=== PATIENT | female | born 2000 | race Caucasian/White ===

== ENCOUNTER 2022-04-03 14:32 | Observation (INO) | payer OTHER, SELFPAY ==
[2022-04-03] VITALS (15 sets, daily range): BP systolic 108–136; BP diastolic 70–96; PULSE 85–129; RESP 16–17; TEMP 36.9; O2SAT 97–100
--- NOTE | ~2022-04-03 | CT_ITS ---
EXAMINATION: CT abdomen pelvis wo con DATE: 04/03/2022 16:48 INDICATION: RLQ abd pain, nausea, leukocytosis TECHNIQUE: Computed tomography (CT) of the abdomen and pelvis was performed without intravenous contr ast. Automated exposure control and iterative reconstruction technique were employed. The dose-length product was 230.97 mGy-cm. COMPARISON: None FINDINGS: Lower thorax: Unremarkable Liver: Normal. Biliary/Gallbladder: Gallbladder is normal. No bile duct dilation. Pancreas: No mass or duct dilation. Spleen: Normal. Adrenals:No mass. Kidneys: No mass, stone, or hydronephrosis. GI tract: No small or large bowel dilation. Appendix not visualized due to paucity of abdominal fat a nd adjacent bowel Mesentery/Peritoneum: No ascites, mass, or free air. Retroperitoneum: No mass. Pelvis: Pelvic organs are within normal limits. Soft Tissues: Soft tissues and body wall unremarkable. Bones: No acute osseous finding. IMPRESSION: Appendix not visualized. No definite right lower quadrant inflammatory process. No acute abdominopelv ic process detected. Reviewed, dictated and finalized at location K. IMPRESSION: Appendix not visualized. No definite right lower quadrant inflammatory process. No acute abdominopelvic process detected.
[2022-04-03 14:51] LABS: Basophils Percent Auto 0.3 % (0.2-1.2); Eosinophils Percent Auto 0.2 % (0-4.4); Hematocrit 40.9 % (37.0-47.0); Hemoglobin 13.5 g/dL (12.0-15.0); Immature Granulocyte Absolute 0.06 K/mm3 (0.00-0.031); Immature Granulocyte Percent A 0.4 % (0-0.5); Lymphocytes Absolute Auto 1.29 K/mm3 (0.9-3.2); Lymphocytes Percent Auto 8.4 % (18.3-44.2); Mean Corpuscular Hemoglobin 30.3 pg (26-34); Mean Corpuscular Volume 91.7 fl (80-100); Mean Platelet Volume 9.5 fl (7.4-10.4); Monocytes Absolute Auto 2.3 K/mm3 (0.1-0.6); Neutrophils Absolute Auto 11.7 K/mm3 (1.3-6.7); Neutrophils Percent Auto 75.7 % (45.5-73.1); Platelet Count Result 225 k/mm3 (150-375); Red Blood Count 4.46 M/mm3 (4.2-5.4); Red Cell Distribution Width 13.3 % (11.5-14.5); White Blood Count 15.4 K/mm3 (4.5-10.0)
[2022-04-03 15:02] LABS: Alanine Aminotransferase 9 U/L (6-35); Albumin Level 4.4 g/dL (3.5-5.1); Alkaline Phosphatase 76 U/L (38-126); Anion Gap 11 mmol/L (8-16); Aspartate Amino Transferase 18 U/L (14-36); Bilirubin,Total 0.9 mg/dL (0.2-1.3); Blood Urea Nitrogen 10 mg/dL (7-17); Calcium 9.1 mg/dL (8.4-10.2); Carbon Dioxide 21 mmol/L (22-30); Chloride 103 mmol/L (98-107); Estimated CRCL calculation 113 ml/min; Estimated Glomerular Filt Rate > 60; Glucose 94 mg/dL (65-110); Lipase 29 U/L (23-300); Potassium 3.6 mmol/L (3.4-5.0); Sodium 135 mmol/L (137-145)
[2022-04-03 15:08] LABS: Appearance Urine Slightly Cloudy (Clear); Bilirubin Urine 1+ (Negative); Blood Urine 3+ (Negative); Color Urine Yellow (Yellow); Glucose Urine UA Negative (Negative); Ketones Urine 4+ mg/dL (Negative); Leukocyte Esterase Ur 1+ LEU/UL (Negative); Nitrate Urine Negative (Negative); Protein Urine 2+ mg/dL (Negative); Urobilinogen Urine 0.2 mg/dL (<2.0)
[2022-04-03 15:18] LABS: Add Urine Microscopic? YES; Bacteria Urine Trace /hpf; Mucus Urine Few /lpf; Squamous Epithelial Cell Urine Many /hpf (Few); WBC Urine 31-50 /hpf
--- NOTE | 2022-04-03 15:47 | ED.ABDPAIN ---
HPI - Abdominal Pain General Chief Complaint: Abdominal Pain <MARII Au Last Filed: 04/03/22 19:34> Stated Complaint: UPPER ABD PAIN X2D <MARII Au Last Filed: 04/03/22 19:34> Time Seen by Provider: 04/03/22 15:39 <MARII Au Last Filed: 04/03/22 19:34> History of Present Illness HPI narrative: Patient is a 21-year-old female here for evaluation of right-sided abdominal pain for the past 3 days. States the pain is present over right lower quadrant and occasionally right upper quadrant. Patient states the pain initially was intermittent in nature, and since then has become constant over the past 2 days. She has had no appetite today in addition to nausea and subjective chills. Denies relief after Aleve, last taken 2 days ago. Additionally, patient requesting STD treatment as she is experiencing dysuria. Patient is currently sexually active, she does report a known chlamydia exposure about 6 months ago she was never treated for or tested for. She denies any unusual vaginal discharge. LMP was 3 weeks ago and was normal for her; not currently on contraceptives. No vomiting, diarrhea, constipation, fevers. <MARII Au Last Filed: 04/03/22 19:34> Related Data Allergies/Adverse Reactions: Allergies Allergy/AdvReac Type Severity Reaction Status Date / Time No Known Allergies Allergy Unknown Verified 04/03/22 14:43 <MARII Au Last Filed: 04/03/22 19:34> Review of Systems Review of Systems: Gen.: Reports chills Eyes: Denies eye pain or visual change ENT: Denies congestion Respiratory: Denies shortness of breath or cough CV: Denies chest pain or palpitations GI: Reports abdominal pain, nausea, anorexia denies burning, urgency, frequency or hematuria Musculoskeletal: Denies back pain or muscle pain Neuro: Denies numbness, tingling, weakness or focal weakness Skin: Denies rash Except as documented, all other systems reviewed and negative <MARII Au Last Filed: 04/03/22 19:34> PMFSH Family History Family History: Family History (Updated 04/04/22 @ 02:10 by Anna Harrison RN) Other Unknown family medical history <Almaz Castañeda PA-C - Last Filed: 04/03/22 19:34> Social History Social History: Social History Smoking packs per day: 0.8 Smoking cigarettes per day: 16.0 Smoking status: Current every day smoker Tobacco type: cigarettes Alcohol intake: current Drinks per week: 5 Substance use: never Spiritual care concerns: No <Almaz Castañeda PA-C - Last Filed: 04/03/22 19:34> Exam Narrative: APPEARANCE: Well appearing, no pain in distress, well-nourished. Head: normocephalic and atraumatic. EYES: PERRLA/EOMI, conjunctivae clear NOSE: No nasal drainage EARS: External ear normal in appearance THROAT: Oropharynx is clear. Mucous membranes are moist. NECK: Supple. No adenopathy, no masses. RESPIRATORY: Airway patent, respirations nonlabored. Clear to auscultation bilaterally, no rales, rhonchi, wheezing. CARDIOVASCULAR: Regular rate and rhythm without murmurs, rubs, or gallops. ABDOMINAL: Tender to palpation in the right lower quadrant. Normoactive bowel sounds. Soft, nontender, nondistended. No rebound tenderness or guarding. : Exam performed with journeyman operator assistant Rahel. Moderate amount of blood noted in vaginal vault. No cervical lesions. No cervical motion tenderness. MUSCULOSKELETAL: Extremities are warm and well-perfused. Moves all extremities well. No edema. NEURO: Normal speech. No focal neurologic deficits. SKIN: Skin is warm and dry. No rashes. PSYCHIATRIC: Normal affect/mood. <Almaz Castañeda PA-C - Last Filed: 04/03/22 19:34> Course SYSTEM ADMIN/PA Physician Supervision For this patient encounter, I reviewed the SYSTEM ADMIN or PA documentation, treatment plan, and medical decision making; and I had [id number] time with krystian
[2022-04-03] MEDS: SODIUM CHLORIDE 0.9% IV 1,000 ML 999 ML IV CONT ×2 (16:05→18:34)
[2022-04-03] MEDS: FAMOTIDINE 20 MG/2 ML VIAL IV PUSH (16:05)
[2022-04-03] MEDS: KETOROLAC 15 MG/ML VIAL (*BKC) IV PUSH (18:34)
--- NOTE | 2022-04-03 19:57 | PC.NURSE ---
Pt states she does not desire to be admitted and she would like to leave AMA. Almaz DAILEY notified.
--- NOTE | 2022-04-03 20:28 | PC.NURSE ---
SBAR faxed to floor at 2020.
--- NOTE | 2022-04-03 21:42 | ADMGEN ---
This patient, Slade Boudreaux, was admitted to [facility] Surg Room 324-01. Patient/family oriented to hospital policies and general routines including ID bracelet, bed and alarms, visiting hours, pain management, procedures, bathroom and other care routines, personal items, smoking policy, room service/diet, and visiting hours. Information on how to activate the Rapid Response Team has been discussed. Patient/Family are encouraged to report perceived risks to care and to ask questions if they do not understand what they are told or what they should do.
[2022-04-03 21:45] LABS: Lactic Acid Reflex 0.7 mmol/L (0.7-2.0)
[2022-04-03] MEDS: SODIUM CHLORIDE 0.9% IV 1,000 ML 150 ML IV CONT (23:29)
[2022-04-04] VITALS: PULSE 75
[2022-04-04 04:00] VITALS: PULSE 79
[2022-04-04 06:00] VITALS: BP 112/66; PULSE 72; RESP 16; TEMP 37.1; O2SAT 98
[2022-04-04 08:00] VITALS: PULSE 69; O2SAT 99
[2022-04-04 09:47] LABS: Basophils Percent Auto 0.4 % (0.2-1.2); Eosinophils Absolute Auto 0.1 K/mm3 (0-0.3); Eosinophils Percent Auto 1.1 % (0-4.4); Hemoglobin 11.8 g/dL (12.0-15.0); Immature Granulocyte Absolute 0.05 K/mm3 (0.00-0.031); Immature Granulocyte Percent A 0.5 % (0-0.5); Lymphocytes Absolute Auto 1.46 K/mm3 (0.9-3.2); Mean Corpuscular HGB Conc 32.8 g/dl (32-36); Mean Corpuscular Hemoglobin 30.1 pg (26-34); Mean Corpuscular Volume 91.8 fl (80-100); Mean Platelet Volume 9.8 fl (7.4-10.4); Monocytes Absolute Auto 1.3 K/mm3 (0.1-0.6); Monocytes Percent Auto 14.6 % (2.6-8.5); Neutrophils Absolute Auto 6.1 K/mm3 (1.3-6.7); Neutrophils Percent Auto 67.4 % (45.5-73.1); Platelet Count Result 198 k/mm3 (150-375); Red Blood Count 3.92 M/mm3 (4.2-5.4); Red Cell Distribution Width 13.4 % (11.5-14.5); White Blood Count 9.1 K/mm3 (4.5-10.0)
--- NOTE | 2022-04-04 09:50 | PM.CNGS ---
Assessment and Plan Assessment and plan (1) Acute right lower quadrant pain: Code(s): R10.31 - Right lower quadrant pain Status: Acute Assessment and Plan: The patient presented with right-sided abdominal pain. She has been having symptoms for 3 days that actually started with chills and body aches. Since being admitted, her abdominal pain has completely resolved and she only has very mild suprapubic tenderness on exam. Her WBC was elevated on admission, but down to normal this morning. The Radiologist was unable to visualize the appendix on CT, but with 3 days of symptoms you would typically expect to see a dilated appendix or at least some inflammatory changes in the right lower quadrant. There is low suspicion at this time that she has acute appendicitis. It seems more likely that her abdominal pain is caused by a urinary or gynecological source. G/C pending. Trichomonas negative. Urine culture pending, although UA suggests contamination. Will start her on a regular diet today. Will continue to closely monitor at this time. (2) Leukocytosis: Code(s): D72.829 - Elevated white blood cell count, unspecified Status: Acute Assessment and Plan: WBC count 15,400 on admission and this has come down to 9,100 today. She is afebrile and has improved significantly since being admitted. No longer complaining of abdominal pain. Currently on broad-spectrum IV antibiotics while other testing is pending. See plan above. (3) Urinary tract infection: Code(s): N39.0 - Urinary tract infection, site not specified Status: Acute Assessment and Plan: Currently on IV Zosyn. Patient with complaints of dysuria. UA suggests contamination. Management per Hospitalist. Additional Plan I have discussed the patient's case and plan of care with Dr. Melgar. History of Present Illness Consult details Consult date: 04/04/22 Reason for consult: abdominal pain Requesting physician: Almaz Castañeda PA-C Narrative: This is a 21-year-old female who presented to the ER yesterday with right-sided abdominal pain, nausea, and chills. She reports first noticing chills 3 days ago. She continued to have chills for 2 day. She reportedly developed body aches two days ago as well, but no fever. She also reports nausea, but no vomiting or diarrhea. She reports starting her menstrual cycle last Larissa before other symptoms began and had associated lower abdominal cramping that she felt was typically with her menstrual cycle. She also endorses dysuria, but no other urinary complaints or changes in vaginal discharge. Yesterday, she began having right-sided abdominal pain in the RUQ and RLQ that she reports radiated up to her neck and down her right leg. Due to the pain, she presented to the ER for further evaluation. Labs showed a WBC count of 15,400. CT scan of the abdomen/pelvis showed no acute intraabdominal process, but they were unable to visualize the appendix due to paucity of abdominal fat and adjacent bowel. The patient had also reported having known exposure to chlamydia about 6 months ago that was untreated. She has had recent new sexual partners as well. She was tested for trichomonas, which was negative, and chlamydia/gonorrhoeae, which are still pending. Pelvic exam revealed no cervical motion tenderness. Urinalysis in the ER showed many epithelial cells, suggesting contamination. Urine culture pending. Blood cultures pending. The patient has been admitted and started on IV Zosyn. She is currently NPO. Our service was consulted due to RLQ abdominal pain with inability to visualize the appendix on CT. She is now seen on the medical floor. She reports her symptoms have all resolved and she feels completely back to baseline today. Review of Systems Review of Systems: All systems reviewed & are unremarkable except as noted in HPI and below Constitutional: Constitutional: Reports as per HPI, Reports no additional constitutional complain
[2022-04-04 10:00] LABS: Anion Gap 9 mmol/L (8-16); Blood Urea Nitrogen 9 mg/dL (7-17); Calcium 8.6 mg/dL (8.4-10.2); Carbon Dioxide 19 mmol/L (22-30); Chloride 114 mmol/L (98-107); Estimated CRCL calculation 133 ml/min; Estimated Glomerular Filt Rate > 60; Glucose 77 mg/dL (65-110); Potassium 3.6 mmol/L (3.4-5.0); Sodium 142 mmol/L (137-145)
--- NOTE | 2022-04-04 11:25 | PM.SD2 ---
Same Day Admit/Disch: HPI History of Present Illness Chief complaint: R/O Appendicitis Narrative: Slade Boudreaux is a 21 year old female with no past medical history presenting with 2-3 day history of nausea, vomiting, diarrhea, body aches as well as some headache. She had localized the tenderness in the right lower quadrant of her abdomen and so in the ER they ordered a CT scan concerning for appendicitis. CT scan was unable to visualize appendix well. Therefore, the patient was admitted for serial abdominal exams and a surgical consultation. STD testing was also requested and urinalysis was equivocal. [facility] Past Medical History Medical History No significant medical problems Surgical History Surgical History No significant past surgical history Family History Family History Other Unknown family medical history Social History Social History Smoking packs per day: 0.8 Smoking cigarettes per day: 16.0 Smoking status: Current every day smoker Tobacco type: cigarettes Alcohol intake: current Drinks per week: 5 Substance use: never Spiritual care concerns: No Same Day Admit/Disch: Med Pre-admit Medications Home Medications Medication Instructions Recorded Confirmed Type amoxicillin 875 mg-potassium 1 tablet PO Q12H #14 tabs 04/04/22 Rx clavulanate 125 mg tablet Exam Narrative: General: Patient resting comfortably in bed, no acute distress HEENT: Atraumatic, normocephalic, mucous membranes moist CV: Regular rate and rhythm, S1, S2, no murmurs rubs or gallops noted Lungs: Clear to auscultation bilaterally, no rales or crackles noted, no wheezes, good air entry Abdomen: Soft, nontender, nondistended Extremities: Normal to inspection, no edema noted Skin: No rashes noted, no lesions or wounds seen Psych: Euthymic, normal affect Neuro: Cranial nerves 2-12 grossly intact, strength 5/5 upper and lower extremities noted DS: Data Data Completed and Pending Completed studies during hospitalization: CT abdomen and pelvis Pending studies at discharge: Urine culture, STD testing Labs on day of discharge: Labs from last 24 hours 04/04/22 04/04/22 04/03/22 09:15 09:15 21:22 WBC 9.1 RBC 3.92 L Hgb 11.8 L Hct 36.0 L MCV 91.8 MCH 30.1 MCHC 32.8 RDW 13.4 Plt Count 198 MPV 9.8 Immature Gran % (Auto) 0.5 Neut % (Auto) 67.4 Lymph % (Auto) 16.0 L [place] % (Auto) 14.6 H Eos % (Auto) 1.1 Baso % (Auto) 0.4 Lymph # (Auto) 1.46 [place] # (Auto) 1.3 H Eos # (Auto) 0.1 Baso # (Auto) 0.0 Abs Immat Gran (auto) 0.05 H Absolute Neuts (auto) 6.1 Absolute Nucleated RBC 0.0 Nucleated RBC % 0.0 Sodium 142 Potassium 3.6 Chloride 114 H Carbon Dioxide 19 L Anion Gap 9 BUN 9 Creatinine 0.50 L Estim Creat Clear Calc 133 Estimated GFR > 60 Glucose 77 Lactic Acid 0.7 Calcium 8.6 Total Bilirubin AST ALT Alkaline Phosphatase Total Protein Albumin Lipase Urine Color Urine Appearance Urine pH Ur Specific [place] Urine Protein Urine Glucose (UA) Urine Ketones Ur Blood (Man) Urine Nitrate Urine Bilirubin Urine Urobilinogen Leukocyte Esterase Rfl Urine RBC Urine WBC Ur Squamous Epith Cells Urine Bacteria Urine Mucus C.trachomatis RNA (TMA) N.gonorrhoeae RNA (TMA) Trichomonas Direct ID 04/03/22 04/03/22 04/03/22 18:14 18:14 14:49 WBC RBC Hgb Hct MCV MCH MCHC RDW Plt Count MPV Immature Gran % (Auto) Neut % (Auto) Lymph % (Auto) [place] % (Auto) Eos % (Auto) Baso % (Auto) Lymph # (Auto) [place] # (Auto) Eos # (Auto)
[2022-04-04 12:00] VITALS: PULSE 134
== END 2022-04-04 12:45 | disposition home or self-care (01) ==
LOC: ANHED 19:43 → ANH3MEDSUR 21:54
PROVIDERS: Emergency Medicine; Nurse Practitioner Family; Physician Assistant; Admitting Provider Student in an Organized Health Care Education/Training Program; Emergency Provider General Practice; Visit Provider Student in an Organized Health Care Education/Training Program
DX: N39.0 Urinary tract infection, site not specified (principal); R10.31 Right lower quadrant pain; R10.11 Right upper quadrant pain; F17.210 Nicotine dependence, cigarettes, uncomplicated; D72.829 Elevated white blood cell count, unspecified; Z20.2 Contact with and (suspected) exposure to infections with a predominantly sexual mode of transmission
CPT/HCPCS: 36415; 74176; 80048; 80053; 81001; 81025; 83605; 83690; 85025; 87040; 87070; 87077; 87086; 87088; 87491; 87591; 87808; 96361; 96365; 96375; 96376; 99285; G0378; G0379; J1885; J2543; J7030